=== PATIENT | female | born 1985 | race Caucasian/White ===

== ENCOUNTER 2020-12-28 12:18 | Emergency (ER) | payer OTHER ==
[~2020-12-28] VITALS: Ht 170.2 cm; Wt 95.3 kg
[~2020-12-28 12:18] MED LIST: PREN-12
[2020-12-28 12:22] VITALS: BP 136/85
[2020-12-28] MEDS ORDERED: ACETAMINOPHEN 325 MG TAB PO ONE (12:40)
[2020-12-28] MEDS ORDERED: IBUP-2213 PO (13:58)
[2020-12-28 14:05] VITALS: BP 136/85
== END 2020-12-28 14:05 | disposition home or self-care (01) ==
LOC: MED 12:18
DX: S92.351A Displaced fracture of fifth metatarsal bone, right foot, initial encounter for closed fracture (principal); R03.0 Elevated blood-pressure reading, without diagnosis of hypertension; X50.0XXA Overexertion from strenuous movement or load, initial encounter; Y93.89 Activity, other specified; Y92.89 Other specified places as the place of occurrence of the external cause; Y99.8 Other external cause status
CPT/HCPCS: 29515; 73610; 73630; 99284